=== PATIENT | male | born 1970 | race Caucasian/White ===

== ENCOUNTER 2023-04-13 18:17 | Emergency (ER) | payer SELFPAY ==
[2023-04-13] MEDS ORDERED: Boostrix 0.5 ML (Tdap) VIAL (>/=7 yrs of age) ONE (21:49)
== END 2023-04-13 21:55 | disposition home or self-care (01) ==
LOC: ERS 18:17
DX: M66.0 Rupture of popliteal cyst (principal); Z23 Encounter for immunization
CPT/HCPCS: 90471; 90715